=== PATIENT | female | born 1990 | race Two or more races ===

== ENCOUNTER 2018-07-02 20:54 | Emergency (ER) | payer OTHER, SELFPAY ==
[~2018-07-02] VITALS: Ht 162.6 cm; Wt 67.0 kg
--- NOTE | 2018-07-02 21:30 | NUR ---
PT TO ED FOR GENERALIZED ABD AND EPIGASTRIC PAIN STARTING AT 1600 THIS AFTERNOON WITH ASSOCIATED N/V RADIATING TO BILATERAL LOWER BACK. LBM TODAY. PT UP TO RESTROOM WTIH STEADY GAIT. UA COLLECTED AND SENT. FAMILY AT BEDSIDE. CONNECTED TO MONITORS. VSS. CALL LIHGT WITHIN REACH. PA TO BEDSIDE FOR ASSESSMENT. DOMINIQUE LOPEZ AT THIS TIME.
--- NOTE | 2018-07-02 21:37 | NUR ---
PT TO BEDSIDE
[2018-07-02] MEDS ORDERED: MAALOX/HYOSCYAMINE/LIDOCAINE 45 ML BTL ONE (21:45)
--- NOTE | 2018-07-02 21:50 | NUR ---
ORDERS RECEIVED FOR GI COCKTAIL FOR EPIGASTRIC PAIN, PT MEDICATED. RESTING IN BED WITH MOM AT BEDSIDE. CALL LIGHT WITHIN REACH. AWAITING LAB RESULTS AT THIS TIME
[2018-07-02 21:52] LABS: MICROSCOPIC INDICATED
[2018-07-02] MEDS ORDERED: MAALOX/HYOSCYAMINE/LIDOCAINE 45 ML BTL PO ONE (22:00)
[2018-07-02 22:02] LABS: BASOPHILS % (AUTO) 0 % (0-1); EOSINOPHILS # (AUTO) 0.01 x10^3/uL (0-0.4); EOSINOPHILS % (AUTO) 0 % (1-7); LYMPHOCYTES # (AUTO) 0.57 x10^3/uL (1-3.4); LYMPHOCYTES % (AUTO) 6 % (22-44); MD NO; MEAN CORPUSCULAR HEMOGLOBIN 30.1 pg (27.0-34.8); MEAN CORPUSCULAR HGB CONC 34.1 g/dL (32.4-35.8); MEAN CORPUSCULAR VOLUME 88.3 fL (80-100); MEAN PLATELET VOLUME 7.4 fL (7.4-10.4); MONOCYTES % (AUTO) 2 % (2-9); NEUTROPHILS # (AUTO) 9.01 x10^3/uL (1.8-6.8); NEUTROPHILS % (AUTO) 92 % (42-75); PLATELET COUNT 346 x10^3/uL (130-400); RED BLOOD COUNT 4.71 x10^6/uL (3.82-5.3); RED CELL DISTRIBUTION WIDTH 12.8 % (9.6-15.2)
[2018-07-02 22:07] LABS: HCG UR SG 1.035 (1.003-1.030)
[2018-07-02 22:15] LABS: ALANINE AMINOTRANSFERASE 14 U/L (12-78); ALBUMIN 4.1 g/dL (3.4-5.0); ANION GAP 9 mmol/L (5-15); CALCIUM 8.9 mg/dL (8.5-10.1); CHLORIDE 108 mmol/L (98-107); CREATININE 0.72 mg/dL (0.55-1.02)
[2018-07-02 22:17] LABS: ALKALINE PHOSPHATASE 55 U/L (45-117); TOTAL PROTEIN 7.6 g/dL (6.4-8.2)
[2018-07-02] MEDS ORDERED: ONDANSETRON ODT 4 MG ONE (22:21)
--- NOTE | 2018-07-02 22:24 | NUR ---
PT MEDICATED PER AUG. ALL RESULTS BACK AT THIS TIME. CHART UP FOR RECHECK.
[2018-07-02 22:26] VITALS: BP 115/77
[2018-07-02] MEDS ORDERED: MORPHINE SULFATE 4 MG/ML, 1ML ONE (22:28)
[2018-07-02] MEDS ORDERED: MORPHINE SULFATE 4 MG/ML, 1ML IVPush ONE (22:30)
[2018-07-02] MEDS ORDERED: ONDANSETRON ODT 4 MG PO ONE (22:30)
--- NOTE | 2018-07-02 22:38 | NUR ---
ADDITIONAL ORDERS RECEIVED. PT MEDICATED PER MAR. FAMILY AT BEDSIDE. CALL LIGHT WITHIN REACH. NO NEEDS AT THIS TIME. AWAITING US.
--- NOTE | 2018-07-02 22:56 | NUR ---
RECEIVED REPORT FROM SCOTT CORRALES.
--- NOTE | 2018-07-02 22:57 | NUR ---
PT TO US.
== END 2018-07-03 00:07 | disposition home or self-care (01) ==
LOC: ED 23:59
DX: R10.13 Epigastric pain (principal); R11.2 Nausea with vomiting, unspecified
CPT/HCPCS: 36415; 76700; 80053; 81001; 81025; 83690; 85025; 96374; 99284; Q0162